=== PATIENT | female | born 1995 | race Caucasian/White ===

== ENCOUNTER 2018-02-27 20:40 | Inpatient (IN) | payer OTHER ==
[~2018-02-27] VITALS: Ht 170.2 cm; Wt 95.0 kg
[2018-02-27 21:50] LABS: BASOPHILS # (AUTO) 0.01 x10^3/uL (0-0.1); BASOPHILS % (AUTO) 0 % (0-1); EOSINOPHILS # (AUTO) 0.03 x10^3/uL (0-0.4); EOSINOPHILS % (AUTO) 0 % (1-7); LYMPHOCYTES # (AUTO) 1.63 x10^3/uL (1-3.4); LYMPHOCYTES % (AUTO) 15 % (22-44); MD NO; MEAN CORPUSCULAR HEMOGLOBIN 31.3 pg (27.0-34.8); MEAN CORPUSCULAR HGB CONC 35.2 g/dL (32.4-35.8); MEAN PLATELET VOLUME 8.3 fL (7.4-10.4); MONOCYTES # (AUTO) 0.55 x10^3/uL (0.2-0.8); MONOCYTES % (AUTO) 5 % (2-9); NEUTROPHILS # (AUTO) 8.56 x10^3/uL (1.8-6.8); NEUTROPHILS % (AUTO) 79 % (42-75); PLATELET COUNT 282 x10^3/uL (130-400); RED BLOOD COUNT 4.56 x10^6/uL (3.82-5.3); RED CELL DISTRIBUTION WIDTH 11.8 % (9.6-15.2)
[2018-02-27 21:57] LABS: CHLORIDE 106 mmol/L (98-107)
[2018-02-27 21:58] LABS: ALANINE AMINOTRANSFERASE 22 U/L (12-78); ALBUMIN 4.2 g/dL (3.4-5.0); ANION GAP 10 mmol/L (5-15); CALCIUM 8.7 mg/dL (8.5-10.1); CREATININE 1.04 mg/dL (0.55-1.02)
[2018-02-27 22:02] LABS: ALKALINE PHOSPHATASE 78 U/L (45-117); TOTAL PROTEIN 7.4 g/dL (6.4-8.2)
[2018-02-27 22:03] LABS: BILIRUBIN,TOTAL 1.1 mg/dL (0.2-1.0)
[2018-02-27 22:04] LABS: MICROSCOPIC INDICATED
[2018-02-27 22:11] LABS: CULTURE INDICATED? YES
[2018-02-27] MEDS ORDERED: PHENAZOPYRIDINE 200 MG TABLET ONE (22:29)
[2018-02-27] MEDS ORDERED: CIPROFLOXACIN 500 MG TABLET ONE (22:29)
[2018-02-27] MEDS ORDERED: ONDANSETRON ODT 4 MG ONE (22:29)
[2018-02-27] MEDS ORDERED: ONDANSETRON ODT 4 MG PO ONE (22:30)
[2018-02-27] MEDS ORDERED: PHENAZOPYRIDINE 200 MG TABLET PO ONE (22:30)
[2018-02-27] MEDS ORDERED: CIPROFLOXACIN 500 MG TABLET PO ONE (22:30)
[2018-02-27] MEDS ORDERED: SODIUM CHLORIDE 0.9% 1,000ML IVBOLUS ONE (23:30)
[2018-02-27] MEDS ORDERED: CEFTRIAXONE 1,000 MG in SODIUM CHLORIDE 0.9% 50 ML IVPB ONE (23:30)
[2018-02-27] MEDS ORDERED: KETOROLAC 30 MG/1 ML IVPush ONE (23:30)
[2018-02-27] MEDS ORDERED: SODIUM CHLORIDE FLUSH 10ML SYR IVF ONE (23:30)
[2018-02-27] MEDS ORDERED: CEFTRIAXONE PMX 1GM/50ML 50 ML ONE (23:45)
[2018-02-27] MEDS ORDERED: KETOROLAC 30 MG/1 ML ONE (23:45)
[2018-02-28 00:29] LABS: BASOPHILS # (AUTO) 0.06 x10^3/uL (0-0.1); BASOPHILS % (AUTO) 0 % (0-1); EOSINOPHILS % (AUTO) 0 % (1-7); LYMPHOCYTES # (AUTO) 1.25 x10^3/uL (1-3.4); LYMPHOCYTES % (AUTO) 8 % (22-44); MD NO; MEAN CORPUSCULAR HEMOGLOBIN 30.8 pg (27.0-34.8); MEAN CORPUSCULAR HGB CONC 34.1 g/dL (32.4-35.8); MEAN CORPUSCULAR VOLUME 90.5 fL (80-100); MEAN PLATELET VOLUME 8.9 fL (7.4-10.4); MONOCYTES # (AUTO) 0.58 x10^3/uL (0.2-0.8); MONOCYTES % (AUTO) 4 % (2-9); NEUTROPHILS # (AUTO) 13.65 x10^3/uL (1.8-6.8); NEUTROPHILS % (AUTO) 88 % (42-75); PLATELET COUNT 301 x10^3/uL (130-400); RED BLOOD COUNT 4.71 x10^6/uL (3.82-5.3); RED CELL DISTRIBUTION WIDTH 11.9 % (9.6-15.2)
[2018-02-28] MEDS ORDERED: BISACODYL 10 MG SUPP PR PRN (00:30)
[2018-02-28] MEDS ORDERED: OXYcodone/APAP 5/325MG TABLET PO PRN (00:30)
[2018-02-28] MEDS ORDERED: morphine SULFATE 10 MG/ML, 1ML IVPush PRN (00:30)
[2018-02-28] MEDS ORDERED: hydrALAzine 20 MG/ML, 1ML IVPush PRN (00:30)
[2018-02-28] MEDS ORDERED: ONDANSETRON 2MG/ML, 2ML IVPush PRN (00:30)
[2018-02-28] MEDS ORDERED: CEFTRIAXONE PMX 1GM/50ML 50 ML IV ONE (00:30)
[2018-02-28] MEDS ORDERED: POLYETHYLENE GLYCOL 17 GM PACKET PO PRN (00:30)
[2018-02-28] MEDS ORDERED: DOCUSATE 100 MG CAPSULE PO PRN (00:30)
[2018-02-28] MEDS ORDERED: ONDANSETRON ODT 4 MG PO PRN (00:30)
[2018-02-28 00:41] LABS: ALBUMIN 4.4 g/dL (3.4-5.0); ANION GAP 11 mmol/L (5-15); CALCIUM 8.9 mg/dL (8.5-10.1); CHLORIDE 103 mmol/L (98-107)
[2018-02-28 00:45] LABS: ALANINE AMINOTRANSFERASE 23 U/L (12-78); ALKALINE PHOSPHATASE 83 U/L (45-117); BILIRUBIN,TOTAL 1.3 mg/dL (0.2-1.0); CHOL/HDL RATIO 3.6; CHOLESTEROL, TOTAL 174 mg/dL (140-239); CREATININE 1.01 mg/dL (0.55-1.02); HDL CHOL % 28 % (28-40); HDL CHOLESTEROL (DIRECT) 49 mg/dL (40-60); LDL CHOLESTEROL,CALCULATED 111 mg/dL (54-169); LDL/HDL RATIO 2.3 (0.5-3.0); TOTAL PROTEIN 7.7 g/dL (6.4-8.2); TRIGLYCERIDES 72 mg/dL (50-200); VLDL CHOLESTEROL 14 mg/dL (0-25)
[2018-02-28 00:53] LABS: FREE T4 (FREE THYROXINE) 1.23 ng/dL (0.76-1.46); THYROID STIMULATING HORMONE 2.21 mIU/L (0.358-3.740)
[2018-02-28 01:00] VITALS: BP 104/66
[2018-02-28] MEDS: SODIUM CHLORIDE 0.9% 1,000 ML IV SCH ×4 (01:10→20:05)
[2018-02-28 01:45] LABS: HEMOGLOBIN A1C 4.6 % (4.2-6.3)
[2018-02-28 08:00] VITALS: BP 100/62
[2018-02-28 13:06] VITALS: BP 114/69
[2018-02-28 19:51] VITALS: BP 106/59
[2018-02-28] MEDS: CEFTRIAXONE PMX 2GM/50ML 50 ML IV SCH (21:52)
[2018-03-01 01:05] VITALS: BP 114/73
[2018-03-01] MEDS: SODIUM CHLORIDE 0.9% 1,000 ML IV SCH ×4 (02:53→23:51)
[2018-03-01 07:35] VITALS: BP 105/71
[2018-03-01 10:44] LABS: BASOPHILS # (AUTO) 0.06 x10^3/uL (0-0.1); BASOPHILS % (AUTO) 1 % (0-1); EOSINOPHILS # (AUTO) 0.09 x10^3/uL (0-0.4); EOSINOPHILS % (AUTO) 1 % (1-7); LYMPHOCYTES # (AUTO) 2.19 x10^3/uL (1-3.4); LYMPHOCYTES % (AUTO) 33 % (22-44); MD NO; MEAN CORPUSCULAR HEMOGLOBIN 31.6 pg (27.0-34.8); MEAN CORPUSCULAR HGB CONC 34.8 g/dL (32.4-35.8); MEAN CORPUSCULAR VOLUME 90.9 fL (80-100); MEAN PLATELET VOLUME 8.7 fL (7.4-10.4); MONOCYTES # (AUTO) 0.49 x10^3/uL (0.2-0.8); MONOCYTES % (AUTO) 7 % (2-9); NEUTROPHILS # (AUTO) 3.86 x10^3/uL (1.8-6.8); NEUTROPHILS % (AUTO) 58 % (42-75); PLATELET COUNT 239 x10^3/uL (130-400); RED BLOOD COUNT 4.25 x10^6/uL (3.82-5.3); RED CELL DISTRIBUTION WIDTH 12.1 % (9.6-15.2)
[2018-03-01 19:21] VITALS: BP 112/74
[2018-03-01] MEDS: ACETAMINOPHEN 325 MG TABLET PO PRN (20:32)
[2018-03-01] MEDS: CEFTRIAXONE PMX 2GM/50ML 50 ML IV SCH (21:58)
[2018-03-02 00:08] VITALS: BP 99/68
[2018-03-02] MEDS: ACETAMINOPHEN 325 MG TABLET PO PRN (01:28)
[2018-03-02] MEDS: SODIUM CHLORIDE 0.9% 1,000 ML IV SCH (06:42)
[2018-03-02 08:21] VITALS: BP 105/69
[2018-03-02 14:11] VITALS: BP 93/62
[2018-03-02] MEDS ORDERED: ACET325T14 PO (14:54)
[2018-03-02] MEDS ORDERED: CEFD300C37 PO (14:54)
== END 2018-03-02 15:55 | disposition home or self-care (01) | DRG 690 ==
LOC: ED 23:21 → EDIP 23:22 → ED 23:32 → 4NOR 02-28 00:27
PROVIDERS: ADMIT Internal Medicine; ATTEND Internal Medicine
DX: N13.6 Pyonephrosis (principal); N17.0 Acute kidney failure with tubular necrosis; R31.9 Hematuria, unspecified
CPT/HCPCS: 36415; 74018; 74176; 76770; 80053; 80061; 81001; 83036; 83690; 83735; 84439; 84443; 84703; 85025; 87040; 87086; 96374; 99285; G0378; J0696; J1885; J2405; Q0162; J7030

== ENCOUNTER 2018-07-27 08:28 | Emergency (ER) | payer OTHER ==
[~2018-07-27] VITALS: Ht 170.2 cm; Wt 81.4 kg
[~2018-07-27 08:28] MED LIST: ACET325T14 PO; CEFD300C37 PO
[2018-07-27 08:30] VITALS: BP 120/82
--- NOTE | 2018-07-27 08:44 | NUR ---
PT STATES THAT SHE HAS ALREADY FILED A REPORT W/ [facility]
[2018-07-27] MEDS ORDERED: HYDROcodone/APAP 5/325 TABLET ONE (08:51)
[2018-07-27] MEDS ORDERED: HYDROcodone/APAP 5/325 TABLET PO ONE (09:00)
--- NOTE | 2018-07-27 10:56 | NUR ---
Patient/Caregiver given discharge instructions and they have confirmed that they understand the instructions. Patient ambulatory with steady gait.
== END 2018-07-27 10:56 | disposition home or self-care (01) ==
LOC: ED 10:21
DX: S02.2XXA Fracture of nasal bones, initial encounter for closed fracture (principal); Y04.8XXA Assault by other bodily force, initial encounter; Y93.01 Activity, walking, marching and hiking; Y92.410 Unspecified street and highway as the place of occurrence of the external cause; Y99.8 Other external cause status
CPT/HCPCS: 70486; 99284